=== PATIENT | female | born 1940 | race Caucasian/White ===

== ENCOUNTER 2022-09-06 19:55 | Inpatient (IN) | payer MEDICARE ==
[~2022-09-06] VITALS: Ht 152.4 cm; Wt 54.4 kg
[~2022-09-06 19:55] MED LIST: ATOR10TA PO; BUPR-54 MT; CITA20TA16 PO; FOLI0.8C PO; GABA-532 PO; LOSA50TA39 PO; OMEP20CA15 PO; TIOT4MIS2 INH; TRAZ-182 PO; URSO300C12 PO
--- NOTE | 2022-09-06 20:07 | NUR ---
PT BIBRA C/O TAILBONE PAIN S/P TRIP AND FALL WHILE TRYING TO TURN ON LAMP. PT AAOX4 BREATHING EVENLY AND UNLABORED. PT REPORTS FALLING ON HER TAILBONE. PT USUALLY WALKS WITH A WALKER. - KO. PT ATTACHED TO MONITOR AND POX. MD AT BEDSIDE. WILL CONTINUE TO MONITOR
[2022-09-06] MEDS ORDERED: LIDOCAINE 5% (PATCH) 1 EA PATCH TP ONE (20:21)
[2022-09-06] MEDS ORDERED: IBUPROFEN 600 MG TABLET ONE (20:21)
[2022-09-06] MEDS: LIDOCAINE 5% (PATCH) 1 EA PATCH TP SCH (20:27)
[2022-09-06] MEDS ORDERED: IBUPROFEN 600 MG TABLET PO ONE (20:30)
--- NOTE | 2022-09-06 20:41 | NUR ---
TAKEN TO RADIOLOGY
--- NOTE | 2022-09-06 21:00 | NUR ---
PER PT, NORMALLY ON 2L O2 AT HOME
--- NOTE | 2022-09-06 21:54 | NUR ---
BLOOD DRAWN, COVID SWAB COLLECTED AND SENT TO LAB
--- NOTE | 2022-09-06 21:57 | NUR ---
[facility] PAGED
[2022-09-06 22:18] LABS: BASOPHILS # (AUTO) 0.1 K/uL (0.0-0.2); BASOPHILS % (AUTO) 0.7 % (0.0-2.0); EOSINOPHILS % (AUTO) 0.6 % (0.0-6.0); HEMATOCRIT 35 % (33-45); HEMOGLOBIN 11.3 g/dL (11.5-14.8); LYMPHOCYTES # (AUTO) 0.8 K/uL (0.8-4.8); MEAN CORPUSCULAR HGB CONC 32 g/dl (31.0-36.0); MEAN CORPUSCULAR VOLUME 89 fL (82-100); MONOCYTES # (AUTO) 0.6 K/uL (0.1-1.30); MONOCYTES % (AUTO) 6.5 % (2.0-12.0); NEUTROPHILS # (AUTO) 7.2 K/uL (1.8-8.9); NEUTROPHILS % (AUTO) 83.2 % (43.0-81.0); PLATELET COUNT (AUTO) 242 K/uL (150-450); RED BLOOD CELL COUNT(AUTO) 3.95 MIL/uL (4.0-5.2); WHITE BLOOD COUNT (AUTO) 8.7 K/uL (4.3-11.0)
[2022-09-06 22:27] LABS: CALCIUM, SERUM 9.4 mg/dL (8.5-10.1); CARBON DIOXIDE 29 mmol/L (21-32); CHLORIDE 101 mmol/L (98-107); CREATININE 1.3 mg/dL (0.6-1.3); GLUCOSE 104 mg/dL (74-106); POTASSIUM 3.9 mmol/L (3.5-5.1); SODIUM SERUM 137 mmol/L (136-145); UREA NITROGEN, BLOOD 24 mg/dL (7-18)
[2022-09-07] MEDS ORDERED: ONDANSETRON HCL/PF 4 MG/2 ML VIAL IVP PRN
[2022-09-07] MEDS ORDERED: HYDROCODONE/APAP 5/325MG TABLET PO PRN
[2022-09-07] MEDS ORDERED: ACETAMINOPHEN 325 MG TABLET PO PRN
--- NOTE | 2022-09-07 | NUR ---
PT SLEEPING, ATTACHED TO MONITOR AND POX.
--- NOTE | 2022-09-07 00:01 | NUR ---
TRAZADONE HELD, PT SLEEPING COMFORTABLY IN BED. ATTACHED TO MONITOR AND POX
--- NOTE | 2022-09-07 01:05 | NUR ---
PT SLEEPING COMFORTABLY, ATTACHED TO MONITOR AND POX. VSS
--- NOTE | 2022-09-07 03:05 | NUR ---
Patient is resting comfortably in bed with eyes closed. Easily aroused. VSS
[2022-09-07] MEDS: ATORVASTATIN 10 MG TABLET PO SCH ×2 (04:15→22:05)
[2022-09-07] MEDS: GABAPENTIN 100 MG CAPSULE PO SCH ×2 (04:15→10:24)
[2022-09-07] MEDS ORDERED: GABAPENTIN 100 MG CAPSULE ONE (04:22)
[2022-09-07] MEDS ORDERED: ATORVASTATIN 10 MG TABLET ONE (04:23)
[2022-09-07 05:07] LABS: BASOPHILS % (AUTO) 0.8 % (0.0-2.0); EOSINOPHILS % (AUTO) 2.5 % (0.0-6.0); HEMATOCRIT 30 % (33-45); HEMOGLOBIN 9.6 g/dL (11.5-14.8); LYMPHOCYTES % (AUTO) 18.4 % (20.0-44.0); MEAN CORPUSCULAR HGB CONC 32 g/dl (31.0-36.0); MEAN CORPUSCULAR VOLUME 89 fL (82-100); MONOCYTES # (AUTO) 0.6 K/uL (0.1-1.30); MONOCYTES % (AUTO) 11.3 % (2.0-12.0); NEUTROPHILS # (AUTO) 3.5 K/uL (1.8-8.9); PLATELET COUNT (AUTO) 209 K/uL (150-450); RED BLOOD CELL COUNT(AUTO) 3.31 MIL/uL (4.0-5.2); WHITE BLOOD COUNT (AUTO) 5.3 K/uL (4.3-11.0)
[2022-09-07 05:31] LABS: CALCIUM, SERUM 8.8 mg/dL (8.5-10.1); CARBON DIOXIDE 30 mmol/L (21-32); CHLORIDE 104 mmol/L (98-107); CREATININE 1.5 mg/dL (0.6-1.3); GLUCOSE 87 mg/dL (74-106); MAGNESIUM 1.9 mg/dL (1.8-2.4); PHOSPHORUS 3.9 mg/dL (2.5-4.9); POTASSIUM 3.5 mmol/L (3.5-5.1); SODIUM SERUM 139 mmol/L (136-145); UREA NITROGEN, BLOOD 26 mg/dL (7-18)
--- NOTE | 2022-09-07 07:05 | NUR ---
GAVE REPORT TO JOSE RAMON [place] FOR MARILOU
--- NOTE | 2022-09-07 07:15 | NUR ---
Received pt from GIL RN PT AWAKE RESPIRATION SPONT AND ASY
[2022-09-07] MEDS ORDERED: IPRATROPIUM NEB FS 0.5 MG/2.5 ML AMPUL.NEB NEB SCH (07:35)
[2022-09-07] MEDS: PANTOPRAZOLE 40 MG TABLET.DR PO SCH (07:49)
[2022-09-07] MEDS ORDERED: PANTOPRAZOLE 40 MG TABLET.DR PO ONE (07:49)
--- NOTE | 2022-09-07 07:56 | NUR ---
WATING for telmetry bed
--- NOTE | 2022-09-07 08:43 | NUR ---
HAND OFF ALFONSO ALBRIGHT TO ROOM 703-2
[2022-09-07 09:00] VITALS: BP 110/50
[2022-09-07] MEDS: LOSARTAN POTASSIUM 50 MG TABLET PO SCH (09:00)
[2022-09-07] MEDS ORDERED: TIOTROPIUM BROMIDE 6 CAP/BOX CAP.W.DEV IH SCH (09:00)
[2022-09-07] MEDS ORDERED: OMEPRAZOLE 20 MG CAPSULE.DR PO SCH (09:00)
[2022-09-07] MEDS: IV NS 0.9% 1,000 ML IV PRN ×2 (09:42→22:04)
--- NOTE | 2022-09-07 10:18 | NUR ---
MS SCRAPPER NOTES PT ADMITTED TO UNIT [facility]IA [facility] AT 0900 WITH DIAGNOSIS OF INTRACTABLE BACK PAIN. PT IS A/O X4. ABLE TO MAKE NEEDS KNOWN. ORIENTED TO STAFF AND ROOM. V/S TAKEN AND RECORDED. PT ON 02 VIA N/C AT 2LPM, TOLERATING WELL, BREATHING EVEN AND UNLABORED, NO ACUTE RESPIRATORY DISTRESS NOTED. SKIN IS INTACT. LOWER LUMBAR MIDLINE MILD TENDERNESS NOTED WITH LIDOCAINE PATCH IN PLACE. IV ACCESS NOTED ON LAC #20G INTACT AND PATENT, IVF OF NS @ 75ML/HR STARTED PER MD ORDER. LUNGS CLEAR ON AUSCULTATION. ABDOMEN SOFT, NON-TENDER WITH POSITIVE BOWEL SOUNDS PRESENT ON FOUR QUADRANTS. SAFETY PRECAUTIONS IMPLEMENTED: BED IN LOWEST LOCKED POSITION, SIDE RAILS UP X2 CALL LIGHT AND TRAY TABLE PLACED WITHIN W/I EASY REACH OF PT. WILL CONTINUE TO MONITOR PT
[2022-09-07] MEDS: CITALOPRAM HYDROBROMIDE 20 MG TABLET PO SCH (10:24)
[2022-09-07] MEDS: FOLIC ACID 1 MG TABLET PO SCH (10:24)
[2022-09-07] MEDS: BUPROPION XL 150 MG TAB.ER.24 PO SCH (10:25)
[2022-09-07] MEDS: URSODIOL 300 MG CAPSULE PO SCH (11:10)
[2022-09-07 17:44] VITALS: BP 140/69
--- NOTE | 2022-09-07 18:07 | NUR ---
RN NOTES CALLED [facility] FOR PT'S LUMBAR BACK BRACE PER MD ORDER. OFFICE IS CLOSED AND LEFT A MESSAGE. FAXED ORDER TO CENTER AND RECEIVED CONFIRMATION THAT IT WAS RECEIVED.
--- NOTE | 2022-09-07 18:48 | NUR ---
MS RN CLOSING NOTE PT IN BED, AWAKE, SLEEPING TV AT THIS TME. A/O X3-4. ABLE TO MAKE NEEDS KNOWN. STABLE ON O2 2 LPM VIA NC. NO SIGNS OF SOB OR LABORED BREATHING. IV LAC #20 RUNNING NS @ 75 ML/HR. ADMINISTERED PRESCRIBED MEDICATIONS AND TOLERATED WELL. SAFETY MEASURES MAINTAINED: BED LOCKED AND IN LOW POSITION; SIDE RAILS UP X3; CALL LIGHT WITHIN REACH. WILL ENDORSE MARILOU TO COMIC BOOK DESIGNER NURSE.
--- NOTE | 2022-09-07 19:42 | NUR ---
RN OPENING NOTES RECEIVED PT LAYING IN BED, ASLEEP, AWAKENS TO VERBAL STIMULI. AOx4, ABLE TO MAKE NEEDS KNOWN. ON RA AND TOLERATING WELL. NO SOB NOTED. NO S/SX OF RESPIRATORY DISTRESS NOTED. IV ACCESS IN LAC #20G RUNNING NS @ 75 ML/HR. SAFETY PRECAUTIONS IN PLACE: BED IN LOWEST, LOCKED IN POSITION, SIDERAILS UPx2, AND BRAKES ON. TABLE AND CALL LIGHT WITHIN REACH. ALL NEEDS MET AT THIS TIME.
[2022-09-07 20:00] VITALS: BP 151/74
[2022-09-07] MEDS: LIDOCAINE 5% (PATCH) 1 EA PATCH TP SCH (20:45)
[2022-09-07] MEDS: TRAZODONE 50 MG TABLET PO SCH ×2 (22:05)
--- NOTE | 2022-09-08 07:11 | NUR ---
RN CLOSING NOTES PT LAYING IN BED, ASLEEP, AWAKENS TO VERBAL STIMULI. AOx4, ABLE TO MAKE NEEDS KNOWN. ON RA AND TOLERATING WELL. NO SOB NOTED. NO S/SX OF RESPIRATORY DISTRESS NOTED. IV ACCESS IN LAC #20G RUNNING NS @ 75 ML/HR. ALL ORDERS CARRIED OUT. ALL NEEDS MET. PT KEPT CLEAN AND DRY. SAFETY PRECAUTIONS IN PLACE: BED IN LOWEST, LOCKED IN POSITION, SIDERAILS UPx2, AND BRAKES ON. TABLE AND CALL LIGHT WITHIN REACH. WILL ENDORSE TO ONCOMING SHIFT FOR MARILOU.
[2022-09-08] MEDS: PANTOPRAZOLE 40 MG TABLET.DR PO SCH ×2 (07:30→09:27)
--- NOTE | 2022-09-08 07:30 | NUR ---
RN OPENING NOTES RECEIVED PT IN BED, ASLEEP, AWAKENS TO VERBAL STIMULI. AOx3 , ABLE TO MAKE NEEDS KNOWN. ON RA AND TOLERATING WELL. NO SOB NOTED. NO S/S NOTED. NO C/O OF PAIN AND DISCOMFORT , IV ACCESS IN LAC #20G RUNNING NS @ 75 ML/HR. SAFETY PRECAUTIONS IN PLACE: BED IN LOWEST, LOCKED IN POSITION, SIDERAILS UPx2, AND BRAKES ON. TABLE AND CALL LIGHT WITHIN REACH. ALL NEEDS MET AT THIS TIME.
[2022-09-08 08:00] VITALS: BP 161/76
--- NOTE | 2022-09-08 08:48 | NUR ---
JOSE RAMON NOTES PANTOPRAZOLE NOTE GIVEN PATIENT HAS A PROCEDURE AND ON NPO AT THIS TIME Addendum: 09/08/22 at 0924 by JA ROCHA RN WRONG DOCUMENTATION PATIENT NOT ON NPO MEDS GIVEN ORDERED
[2022-09-08] MEDS: LOSARTAN POTASSIUM 50 MG TABLET PO SCH (09:28)
[2022-09-08] MEDS: CITALOPRAM HYDROBROMIDE 20 MG TABLET PO SCH (09:28)
[2022-09-08] MEDS: FOLIC ACID 1 MG TABLET PO SCH (09:28)
[2022-09-08] MEDS: URSODIOL 300 MG CAPSULE PO SCH (09:28)
[2022-09-08] MEDS: GABAPENTIN 100 MG CAPSULE PO SCH (09:28)
[2022-09-08] MEDS: BUPROPION XL 150 MG TAB.ER.24 PO SCH (09:28)
--- NOTE | 2022-09-08 09:30 | NUR ---
WOUND CARE CONSULT: PT SEEN FOR SKIN ASSESSMENT AND NOTED TO HAVE SOME DISCOLORATION TO SACRAL/BUTTOCKS REGION, PRESENT ON ADMISSION. PT ABLE TO ASSIST WITH TURNING AND REPOSITIONING IN BED BUT HAS SOME SORENESS ON RT SIDE. PT ASKING WHEN SHE WILL BE GOING BACK TO HER ROOM. PT REORIENTED. DISCUSSED WITH NURSING STAFF AND CONFIGURATION MANAGEMENT ANALYST. DISCUSSED SKIN PROTECTION WITH NURSING STAFF. MD IN AGREEMENT WITH PLAN OF CARE.
[2022-09-08] MEDS: Z GUARD REMEDY 4 OZ OINT TP PRN ×2 (11:59→12:00)
[2022-09-08 12:00] VITALS: BP 154/81
[2022-09-08] MEDS: Z GUARD REMEDY 4 OZ OINT TP SCH (12:02)
[2022-09-08] MEDS ORDERED: ENOXAPARIN SODIUM 30 MG/0.3 ML DISP.SYRIN SQ SCH (14:00)
--- NOTE | 2022-09-08 15:43 | NUR ---
Map Drafter Consult SRINIVASA received a consult request a fall at home. Pt. is a 81-year-old white female who was admitted for back pain. SRINIVASA met with pt. at bedside. Pt. is alert and oriented x4 and appeared well groomed with a full affect. SRINIVASA confirmed pt. contact information and confirmed that her emergency contact is her neighbor, Kodi. Pt. lives alone with her cat and does not have a caregiver. Per pt. report she wants to go to a ESTEBAN but wants her neighbor to assist her in connecting her with an ESTEBAN. Pt. reports that she is independent with her ADLs and her neighbor Kodi helps her feed her cat and clean her home. Pt. reports she uses a walker. Pt. receives [employer] and SSI. Pt. states that she was a nicotine smoker for 40 years but has stopped and does not drink alcohol due to medication. Pt. stated that she feels depressed and is receiving medication for it (Bupropion and citalopram). Pt. denies having hallucinations. SRINIVASA assessed for suicidal and homicidal ideation in which pt. denied plan, means, or intent. . DC plan: When SRINIVASA asked pt.s plan after being discharged, [place] [address] [place] [address]. SRINIVASA offered pt. ESTEBAN and SNF placement in which the pt. refused due to stating that her neighbor Kodi was helping her with placement. SRINIVASA encouraged pt. to connect with an ESTEBAN. SRINIVASA offered pt. with a senior resource guide, mental health resources, caregiving guides, and transportation resources in which pt. accepted them. SRINIVASA discussed with nurse. ABUSE PREVENTION: ELDER ABUSE HOTLINE (28/05) ADULT PROTECTIVE SERVICES HOTLINE LONG-TERM CARE [facility] Region AREA ON AGING (HOTLINE) ADULT DAY HEALTH CARE CARE CENTERS: Private pay or Medi-nino funded adult day care [place] Adult Day Health Care [facility] , [facility] , [facility] , [facility] , [facility] Day Health Care , [facility] Adult [facility] , [facility] , [place] [facility] , [place] ALZHEIMERS DISEASE/DEMENTIA: Alzheimers Association Helpline [facility] www.alz.org/[facility] Department of Aging www.lacity.org Family Caregiver Gattman www.caregiver.org [place] Caregiver Resources Center/Family Support www.[facility] centerangelesswilliamson arh hospital.org CANCER RESOURCES: [place] Cancer Society www.cancer.org Cancer Support Community www.CancerSupportVvsb.org: CancerCare www.cancercare.org [facility] Cancer Support Center www.[facility].org COMMUNITY HEALTH ASSOCIATIONS: AARP www.aarp.org ALS Association (ask for Adelaide) www.als.org Jama[place] Diabetes Association www.diabetes.org Jama[place] Heart Association www.heart.org Jama[place] Lung Association www.lungusa.org Jamaican Parkinson Disease Association www.apdaparkinson.org Jamaican [place] , www.redcross.org Arthritis Foundation www.arthritis.org Crohns & Colitis Foundation of Jamaican www.ccfa.org/chapters/jarrell National Multiple Sclerosis Society www.nationalmssociety.org Myasthenia Gravis Foundation www.myasthenia-ca.org National Stroke Association www.stroke.org CONSERVATORSHIP & GUARDIANSHIP: AARP Madonna Perera Legal Services Center for Health Care Rights Eldercare Information and Referral Sheet Metal Worker Apprentice Foundation [facility]: [facility] Referral Service [facility] Legal Services Office of the Public Guardian [place] EYESIGHT DISORDER RESOURCES: [place] Macular Degeneration Foundation [facility] www.[facility].org GRIEF AND BEREAVEMENT RESOURCES: The [facility] Place , [facility] THE [facility] , [facility] , [place] HEARING DISORDER RESOURCES: [place] Telephone Access Program Deaf and Disabled Telecommunications Program www.ddtp.[facility].ca.gov HearRx Hearing Centers ([place]) Better Hearing Systems , [place] GLAD ([facility] Agency on Deafness) V/ TTY; Instrument Lens Inspector , [facility] Hearing [facility] -low income hearing aid assistance www.Molecule Synthhearingfoundation.org [place] [facility] , Seth HELP AT HOME CAREGIVER SUPPORT: In Home Support Services (Must have Medi-Nino to be eligible) *Ask for a list of agencies that provide services to assist with care in the home. Local Senior Centers also have listings of care providers. HOME SAFETY MODIFICATIONS AND EQUIPMENT: Senior centers have additional referrals. [place] Housing and Community Investment Dept. Handyworker Program (low income) or Visit http://hcidla.lacity.org/lwp-dfojhj-ye for more information National Seating and Mobility and/or ; Forever Active www.foreveractivemed.com Stay Home Safe www.Stayhomesafe.WorkFlowy LIFE ALERT RESPONSE SYSTEM: Traxer Services 214-031-4279 www. Clickshare Service Corp. Life Alert 198-096-0470 www.MyCube Life Station 891-553-5674 www.X5 Group.WorkFlowy Safe Return 816-552-2214 www.alz.or/safereturn Cell Phones for Seniors www.Exco inTouch MEALS AND FOOD PROGRAMS: [place] Meals on Wheels [phone] [place] Meals on Wheels [phone] [facility] [phone] [place] to the Homebound [phone] [place] to the Homebound [phone] [facility] to the Homebound [phone] [facility] to the Homebound [phone] [facility] [phone] [facility] [phone] ONE Generation [phone] [facility] 872-275-6283 [facility] [phone] Meals on Wheels [phone] For all ages: $6.85/ meal w side. Delivered M-F from 10 am-1pm. Application and payment is done over the phone. Frozen meals available for weekends. Emergency Food Coalition 190-627-5777 [phone] [facility] Map Drafter [phone] [facility] [phone] [facility]- Brown bag lunches [phone] [facility] [phone] MEAL/GROCERY DELIVERY PROGRAMS: [facility] Gourmet Meals [phone]- [facility] [phone]- [facility] Magic Kitchen [phone] Moms Meals [phone] (ask Estrada for Discount Select grocery stores may provide delivery. MEDICAL INSURANCE SUPPORT SERVICES: Center for Health Care Rights [phone] Health Insurance Counseling/Advocacy Programs (HICAP)-Must have Medicare. Offers counseling for Medi-Nino eligibility 027-315-4195 Department of Public Map Drafter 531-026-7062 www.[facility].ca.gov Medicare 767-795-7560 www.socialsecurity.org Social Security 606-810-0702 SENIOR ACTIVITY PROGRAMS: *Contact a local senior center, adult school, recreation facility or community college for education, fitness, recreation, and social programs. Aquatic Therapy and Adapted Exercise programs through [facility] 820-016-[address] 243-245-6404 www.[facility]/encore U- Senior Friends 434-559-0323 [place] Senior Programs 283-872-0853 www.oasisnet.org Suddenly 65 www.xbxgfxve07.com SENIOR CENTERS: [facility] Senior Center [phone] [facility] [place] [phone] [facility] [phone] [facility] [phone] [facility] [phone] [facility] [phone] [facility] [phone] [facility] [phone] One Generation, [facility] [phone] [facility] [phone] [facility] [phone] [facility] [phone] [facility] [phone] TRANSPORTATION: Local [facility] Centers may have applications for transportation programs and additional resources. ACCESS Services 522-594-1111 Transportation for seniors and disabled persons 7 days a week requiring 254 hr. advance reservation. Must apply and register for program jon eligible. CITY RIDE 077-657-6929 or 192-830-5142 Transportation for seniors and persons with ADA card/metro disabled card in the [facility]. M-F only. Must register for services. ONE GENERATION 522-435-3185 Serves 65 years + in conjunction with Time Bomb Deals ride program. Must be registered with both programs. A to B Transport [phone] Provides wheelchair/gurney van service. Adult Medical Transport [phone] Accepts [facility]-nino with prior authorization. Care Van [phone] Provides wheelchair Transport. City Wide Transportation [phone] Provides gurney service Gentle Care [phone] Gurney Transport. [facility] Town Transportation [phone] wheelchair & gurney transport [facility] Transportation [phone] wheelchair & gurney transport Drifting Non-Emergency Transport [phone] wheelchair & gurney transport [facility] [place] [phone] Short Term Transportation primarily for adults with disabilities on social security income. Nominal fee may apply and a reservation is required. City Cab [phone] or [phone] [facility] [phone] [place] [address] Referral Services -[phone] For additional programs & services VETERANS RESOURCES: Submissions for Aid and Attendance should be done directly to [facility] office locatd at : [address] [address] X110 National Caregiver Support Line [phone] [facility] Veterans Services Field Office [phone] [place] Department of Joseph Affairs [phone] Pension Information [phone]
[2022-09-08 16:00] VITALS: BP 138/79
--- NOTE | 2022-09-08 19:00 | NUR ---
RN CLOSING NOTES PATIENT ON BED AWAKE . AOx3 , ABLE TO MAKE NEEDS KNOWN. ON RA AND TOLERATING WELL. NO SOB NOTED. NO S/S NOTED. NO C/O OF PAIN AND DISCOMFORT , ALL DUE MEDS GIVEN ORDERED, SEEN BY WOUND NURSE AND WITH ORDER OF Z GUARD , BACK BRACE WAS DELIVERED FROM [employer] , SEEN BY PT AND ABLE TO AMBULATE WITH FWW FRO M BED TO BATHROOM , IV ACCESS IN LAC #20G RUNNING NS @ 75 ML/HR. SAFETY PRECAUTIONS IN PLACE: BED IN LOWEST, LOCKED IN POSITION, SIDERAILS UPx2, AND BRAKES ON. TABLE AND CALL LIGHT WITHIN REACH. ALL NEEDS MET AT THIS TIME.
[2022-09-08 20:00] VITALS: BP 159/75
--- NOTE | 2022-09-08 20:00 | NUR ---
RECEIVED PATIENT IN BED, ALERT/ORIENTED X4, 2LPM VIA NC, NO COMPLAIN OF BACK PAIN, REPOSITIONED FOR COMFORT, KEPT SAFE, WILL CONTINUE TO MONITOR.
[2022-09-08] MEDS: IV NS 0.9% 1,000 ML IV PRN (21:08)
[2022-09-08] MEDS: ATORVASTATIN 10 MG TABLET PO SCH (21:15)
[2022-09-08] MEDS: TRAZODONE 50 MG TABLET PO SCH (21:16)
--- NOTE | 2022-09-09 05:57 | NUR ---
PATIENT IN BED, ALERT/ORIENTED X3, WITH CONFUSION, FORGETFUL. 2LPM VIA NC, NO RESPIRATORY DISTRESS, S/P FALL AT HOME WITH LOW BACK PAIN, NO COMPLAIN OF PAIN AT REST, LUMBAR BRACE, AMBULATES USING FWW WITH ASSISTANCE, CONTINUE HYDRATION, NS AT 75 ML/HR, FALL PRECAUTION, KEPT SAFE, WILL CONTINUE TO MONITOR.
--- NOTE | 2022-09-09 07:30 | NUR ---
RN OPENING NOTES RECEIVED PT IN BED, AWAKE. AOx3 , ABLE TO MAKE NEEDS KNOWN. ON RA AND TOLERATING WELL. NO SOB OR DISTRESS NOTED . NO C/O OF PAIN AND DISCOMFORT , IV ACCESS IN RIGHT HAND #22 G RUNNING NS @ 75 ML/HR. SAFETY PRECAUTIONS IN PLACE: BED IN LOWEST, LOCKED IN POSITION, SIDERAILS UPx2, AND BRAKES ON. TABLE AND CALL LIGHT WITHIN REACH. ALL NEEDS MET AT THIS TIME. WILL CONTINUE TO MONITOR
[2022-09-09 08:00] VITALS: BP 148/72
[2022-09-09] MEDS: URSODIOL 300 MG CAPSULE PO SCH (10:02)
[2022-09-09 10:03] VITALS: BP 148/72
[2022-09-09] MEDS: LOSARTAN POTASSIUM 50 MG TABLET PO SCH (10:03)
[2022-09-09] MEDS: CITALOPRAM HYDROBROMIDE 20 MG TABLET PO SCH (10:03)
[2022-09-09] MEDS: FOLIC ACID 1 MG TABLET PO SCH (10:03)
[2022-09-09] MEDS: GABAPENTIN 100 MG CAPSULE PO SCH (10:03)
[2022-09-09] MEDS: BUPROPION XL 150 MG TAB.ER.24 PO SCH (10:03)
[2022-09-09] MEDS: PANTOPRAZOLE 40 MG TABLET.DR PO SCH (10:06)
[2022-09-09] MEDS ORDERED: POLYETHYLENE GLYCOL 3350 17 GM POWD.PACK PO SCH (11:00)
[2022-09-09] MEDS ORDERED: DOCUSATE SODIUM 100 MG CAPSULE PO SCH (13:00)
--- NOTE | 2022-09-09 14:30 | NUR ---
SPRING COILER NOTES PT IN BED, AWAKE. AOx3 , ABLE TO MAKE NEEDS KNOWN. ON RA AND TOLERATING WELL. NO SOB OR DISTRESS NOTED . NO C/O OF PAIN AND DISCOMFORT , ALL DUE MEDS GIVEN ORDERED , WITH ORDER FOR DISCHARGE TO [facility] AND DISCHARGE PAPERS WERE PREPARED AND INSTRUCTIONS PROVIDED TO THE PATIENT AND UNDERSTOOD , REPORT GIVEN TO THE RN IN FACILITY - AYANNA ALBRIGHT . ALL BELONGINGS WERE ACCOUNTED FOR AND FORM WAS SIGNED BY THE PATIENT , ALSO REPORT GIVEN TO THE AMBULANCE PERSONNEL AND PATIENT LEFT WITH NO SOB OR DISTRESS NOTED AND NO C/O OF PAIN AND DISCOMFORT , [place] VIA AMBULANCE ACCOMPANIED BY AMBULANCE PERSONNEL , IV ACCESS WAS RMEOVED AND AND ID BAND . PATIENT LEFT MEDICALLY STABLE
[2022-09-09] MEDS: Z GUARD REMEDY 4 OZ OINT TP SCH (14:32)
[2022-09-09] MEDS ORDERED: SENNOSIDES 8.6 MG TABLET PO SCH (22:00)
== END 2022-09-09 14:35 | DRG 542 ==
LOC: ER 19:58 → TRANSITION 09-07 03:16 → MED 09-07 08:01
PROVIDERS: ADMIT Nurse Practitioner Acute Care; ATTEND Internal Medicine
DX: M48.55XA Collapsed vertebra, not elsewhere classified, thoracolumbar region, initial encounter for fracture (principal); N17.0 Acute kidney failure with tubular necrosis; W18.30XA Fall on same level, unspecified, initial encounter; Z74.09 Other reduced mobility; I10 Essential (primary) hypertension; J44.9 Chronic obstructive pulmonary disease, unspecified; K21.9 Gastro-esophageal reflux disease without esophagitis; Z88.1 Allergy status to other antibiotic agents; Z88.8 Allergy status to other drugs, medicaments and biological substances; Z79.899 Other long term (current) drug therapy; F32.A Depression, unspecified; E78.5 Hyperlipidemia, unspecified; Z91.81 History of falling; Z87.891 Personal history of nicotine dependence; M40.205 Unspecified kyphosis, thoracolumbar region; R26.89 Other abnormalities of gait and mobility
CPT/HCPCS: 36415; 71045-TC; 71100-TC; 72100-TC; 72170-TC; 80048-TC; 83735-TC; 84100-TC; 85025-TC; 87081-TC; 97110-TC; 97112-TC; 97116-TC; 97530-TC; C9803; G0378; J1650; J2405; J7030